=== PATIENT | female | born 1960 | race Caucasian/White ===

== ENCOUNTER 2023-03-23 08:47 | Emergency (ER) | payer OTHER, SELFPAY ==
[2023-03-23] VITALS (19 sets, daily range): BP systolic 120–153; BP diastolic 60–100; PULSE 62–76; RESP 0–29; TEMP 36.6; O2SAT 98–100; BMI 25.8
--- NOTE | 2023-03-23 09:10 | ED.BACK1 ---
HPI - Back Pain/Injury General Chief Complaint: Back Pain/Injury Stated Complaint: BACK PAIN, LEFT SIDED PAIN Time Seen by Provider: 03/23/23 09:10 Source: patient Mode of arrival: walk-in Limitations: no limitations History of Present Illness HPI Narrative: Patient presents to emergency department complaining of neck pain. Patient states she has a history of osteoarthritis and carpal tunnel. She states she has been having neck stiffness last week so she went to see her primary care doctor. Had an EMG ordered but he has not begun yet. Patient states she went to bed yesterday morning she will cough could not move her neck. She feels like when you have whiplash. Pain is on the left posterior and laterally and radiates down to her left medial scapular border. She denies any paresthesias, or weakness. She denies any fever, chills, or cough. She states it feels like her rib is off. She took ibuprofen has not had any relief. She denies any headache, visual disturbance, speech difficulties. She denies any urinary, bowel incontinence, retention. She denies any chest pain, or shortness of breath. She denies any nausea, vomiting, diarrhea, constipation, abdominal pain. She denies any flank pain, hematuria, dysuria. She denies any trauma to the arm, neck or back. Related Data Previous Rx's Medication Instructions Recorded cyclobenzaprine 10 mg tablet 10 mg PO TID PRN muscle spasm #14 03/23/23 tabs ibuprofen 600 mg tablet 600 mg PO TID PRN pain #20 tabs 03/23/23 Allergies Allergy/AdvReac Type Severity Reaction Status Date / Time pcn AdvReac Intermediate Uncoded 03/23/23 08:54 Review of Systems ROS Status of ROS 10 or more systems reviewed and unremarkable except as noted in history and below [facility] Social History Smoking status: Current every day smoker Exam Narrative Exam Narrative: Nurses notes and vital signs reviewed and patient is not hypoxic. General: Nontoxic, Well-appearing and in no apparent distress. Skin: Warm, dry, no pallor noted. No Rash Head: Normocephalic, atraumatic. Neck: Supple, Tenderness and spasm noted to the left sternocleidomastoid muscle. Range of motion is limited by pain. There is no erythema, no signs of trauma, infection. Eye: Pupils are equal, round and EOMI. No scleral icterus. Ears, Nose, Mouth, and Throat: TM clear, no posterior oropharynx erythema or nasal mucosal hypertrophy, uvula is mid-line Oral mucosa is moist Cardiovascular: Regular Rate and Rhythm without murmur, gallop or rub. Respiratory: No accessory muscle use or respiratory distress. Lungs are clear to auscultation, no wheezing, rales or rhonchi Chest Wall: no tenderness Back: Tenderness to palpation to the left lateral paraspinal muscles, suprascapular, and medial scapular border ribs 4 and 5. No signs of trauma, infection. No step-offs, crepitus. No midline thoracic or lumbar vertebral tenderness. No CVA tenderness Musculoskeletal: normal ROM, no calf or popliteal tenderness, no lower extremity edema/swelling GI: Abdomen is soft, non-distended. Normal bowel sounds. No masses appreciated. No tenderness to palpation. No rebound, guarding, or rigidity noted. Neurological: A&O x4. No cranial nerve dysfunction observed. No truncal ataxia. Moves all extremities. Sensation intact. Psychiatric: Cooperative and interactive. Normal mood and affect. Constitutional Vital Signs, click to edit/add: Last Vital Signs Temp 97.8 F 03/23/23 08:52 Pulse 70 03/23/23 12:01 Resp 18 03/23/23 12:01 BP 120/73 H 03/23/23 12:01 Pulse Ox 99 03/23/23 12:01 O2 Del Method Room Air 03/23/23 08:52 Course Vital Signs Vital signs: Vital Signs Temperature 97.8 F 03/23/23 08:52 Pulse Rate 76 03/23/23 08:52 Respiratory Rate 18 03/23/23 08:52 Blood Pressure 153/95 H 03/23/23 08:52 Pulse Oximetry 100 03/23/23 08:52 Oxygen Delivery Method Room Air 03/23/23 08:52 Temperature 97.8 F 03/23/23 08:52 Pulse Rate 70 03/23/23 12:01 Respiratory Rate 18 03/23/23 12:01 Blood Pressure 120/73 H 03/23/23 12:01 Pulse Oximetry 99 03/23/23 12:01 Oxygen Delivery Method Room Air 03/23/23 08:52 MDM - Back Pain/Injury MDM Narrative Medical decision making narrative: Patient was given Norflex, and 2 mg of morphine IV. Symptoms improved but she was still feeling like her neck was stiff. CT scan of the cervical spine was ordered, chest x-ray is unremarkable. Labs are unremarkable. D-dimer is negative. Troponin is negative. EKG does not show anything acute. Results discussed with patient. Patient is advised follow-up with primary care doctor regarding EMG and further testing. She is given a prescription for Flexeril, and ibuprofen. At this time the patient is without objective evidence of an acute process requiring hospitalization or inpatient management. The patient has remained hemodynamically stable. No additional indication for emergent studies at this time. I answered all questions. Discussed discharge instructions including standard anticipatory guidance and what should prompt a return to the emergency department, including if they get worse are not getting better or develops any new or concerning symptoms. I've given them specific time frame in which to follow-up, and who to follow-up with. The patient demonstrates understanding. Patient is nontoxic and stable for discharge with outpatient follow-up. This note was created with the assistance of a speech recognition program. Although the intention is to generate documents that actually reflects the content of the visit, no guarantees can be provided that every mistake has been identified and corrected by editing. Differential Diagnosis Differential diagnosis: Likely thoracic back pain and discitis Lab Data Attestation: I reviewed the patient's lab results. Labs: Lab Results 03/23/23 Range/Units 10:00 WBC 8.1 (4.0-11.0) 10^3/uL RBC 4.64 (4.20-5.40) 10^6/uL Hgb 14.3 (12.0-16.0) g/dL Hct 42.6 (36.0-48.0) % MCV 91.8 (81.0-99.0) fL MCH 30.8 (26.7-34.0) pg MCHC 33.6 (29.9-35.2) g/dL RDW 13.7 (11.0-15.0) % Plt Count 224 (150-450) 10^3/uL MPV 9.3 L (9.5-13.5) fL Neut % (Auto) 63.6 (43.0-75.0) % Lymph % (Auto) 23.0 (20.5-60.0) % [place] % (Auto) 11.2 (1.7-12.0) % Eos % (Auto) 1.2 (0.9-7.0) % Baso % (Auto) 0.5 (0.2-2.0) % Neut # (Auto) 5.2 (1.4-6.5) 10^3/uL Lymph # (Auto) 1.9 (1.2-3.8) 10^3/uL [place] # (Auto) 0.9 H (0.3-0.8) 10^3/uL Eos # (Auto) 0.1 (0.0-0.7) 10^3/uL Baso # (Auto) 0.0 (0.0-0.1) 10^3/uL Abs Immat Gran (auto) 0.04 H (0.00-0.03) 10^3/uL Imm/Tot Granulo (auto) 0.5 (0.0-0.5) % PT 10.1 (9.0-11.6) sec INR 0.95 D-Dimer 0.21 (<=0.59) mg/L FEU Sodium 139 (136-145) mmol/L Potassium 4.2 (3.5-5.1) mmol/L Chloride 104 (98-107) mmol/L Carbon Dioxide 27.3 (21.0-32.0) mmol/L Anion Gap 11.9 BUN 12.0 (7.0-18.0) mg/dL Creatinine 0.66 (0.55-1.02) mg/dL Est GFR ( Amer) >60 (>=60) Est GFR (Non-Af Amer) >60 (>=60) BUN/Creatinine Ratio 18.2 Glucose 88 (74-106) mg/dL Calcium 8.8 (8.5-10.1) mg/dL Magnesium 2.1 (1.8-2.4) mg/dL Total Bilirubin 0.4 (0.2-1.0) mg/dL AST 44 H (15-37) U/L ALT 73 H (14-59) U/L Alkaline Phosphatase 76 (46-116) U/L Troponin I High Sens 5.1 (4.0-51.3) pg/mL Total Protein 7.7 (6.4-8.2) g/dL Albumin 3.7 (3.4-5.0) g/dL Globulin 4.0 g/dL Albumin/Globulin Ratio 0.9 ECG Data Attestation: I personally reviewed and interpreted this ECG as follows: Interpretation: Sinus rhythm 63 beats per minutes. Normal axis. There are no acute ischemic changes. Discharge Plan Discharge Chief Complaint: Back Pain/Injury Clinical Impression: Muscle spasm, Thoracic back pain Patient Disposition: Home, Self-Care Time of Disposition Decision: 12:08 Condition: Good Mode of Transportation: Private Vehicle Prescriptions / Home Meds: New cyclobenzaprine 10 mg tablet 10 mg PO TID PRN (Reason: muscle spasm) Qty: 14 0RF ibuprofen 600 mg tablet 600 mg PO TID PRN (Reason: pain) Qty: 20 0RF Instructions: Muscle Spasm (ED), Neck Pain (ED) Stand Alone Forms: Portal Instructions Referrals: BHUPINDER NGUYEN [Primary Care Provider] - 1 week Discharge Date/Time: 03/23/23 12:36
--- NOTE | 2023-03-23 09:30 | ECG_ITS ---
The [facility] Test Date: 2023-03-23 Pat Name: STANLEY VALENTIN Department: Room: - Gender: Female [facility] [employer]: : 1960 Requested By: BHUPINDER NGUYEN Order Number: [id number] Reading MD: LAUREN OTERO Measurements Intervals Cut Off Rate: 63 P: 75 NH: 150 QRS: 65 QRSD: 90 T: 33 QT: 402 QTc: 410 Interpretive Statements 1100 Sinus rhythm 9110 normal ECG No previous ECG available for comparison Electronically Signed On 03-24-2023 6:58:00 EDT by LAUREN OTERO
--- NOTE | 2023-03-23 09:30 | XR_ITS ---
The [address] [address] Patient Name: STANLEY VALENTIN MRN: [id number] date: 1960 Sex: F Assigned Patient Location: ER Current Patient Location: ER Accession/Order Number: [id number] Exam Date: 03/23/2023 11:04 Report Date: 03/23/2023 11:26 At the request of: MIKE ANDREWS Procedure: XR chest 1V EXAM: XR chest 1V HISTORY: Pain; technologist notes state acute left-sided upper thoracic and neck pain since 03/21/2023. COMPARISON: None. TECHNIQUE: AP erect portable chest radiograph performed. FINDINGS: The trachea is midline. The heart size is upper limits normal and magnified. The mediastinal silhouette and hilar shadows are unremarkable. The lung volumes are normal. The lung vera are clear. There is no pneumothorax or osseous abnormality. XR/XR chest 1V IMPRESSION: Unremarkable AP erect portable chest radiograph. Electronically authenticated by: GERARD LOCKHART Date: 03/23/2023 11:26
--- NOTE | 2023-03-23 09:30 | CT_ITS ---
[address] [address] Patient Name: STANLEY VALENTIN MRN: [facility]:[id number] date: 1960 Sex: F Assigned Patient Location: ER Current Patient Location: .[facility] Accession/Order Number: [id number] Exam Date: 03/23/2023 10:27 Report Date: 03/23/2023 10:52 At the request of: MIKE ANDREWS Procedure: CT cervical spine wo con PROCEDURE: CT cervical spine wo con COMPARISON: None. HISTORY: pain TECHNIQUE: Axial, Coronal, and Sagittal images were created without and with non-ionic intravenous contrast material. Dose reduction techniques were achieved by using automated exposure control and/or adjustment of mA and/or kV according to patient size and/or use of iterative reconstruction technique. FINDINGS: CRANIOCERVICAL AREA: PARASPINAL AREA: Normal with no visible mass. BONES: Normal alignment with no acute fracture or spondylolisthesis. Mild degenerative spondylosis C5-C6 CERVICAL DISC LEVELS: C2-C3: No significant disc/facet abnormality, spinal stenosis, or foraminal stenosis C3-C4: No significant disc/facet abnormality, spinal stenosis, or foraminal stenosis C4-C5:Early degenerative disc disease is present without focal protrusion or neural impingement. C5-C6:Moderate degenerative disc disease is present without visible neural impingement. C6-C7:Early degenerative disc disease is present without focal protrusion or neural impingement. C7-T 1: No significant disc/facet abnormality, spinal stenosis, or foraminal stenosis CT/CT cervical spine wo con IMPRESSION: Moderate degenerative changes C5-C6. No central or foraminal stenosis Electronically authenticated by: EVARISTO PUCKETT Date: 03/23/2023 10:52
[2023-03-23] MEDS: ORPHENADRINE 60 MG/ 2 ML VIAL IV (09:45)
[2023-03-23 10:10] LABS: Basophils Percent Auto 0.5 % (0.2-2.0); Eosinophils Absolute Auto 0.1 10^3/uL (0.0-0.7); Eosinophils Percent Auto 1.2 % (0.9-7.0); Hematocrit 42.6 % (36.0-48.0); Hemoglobin 14.3 g/dL (12.0-16.0); Immature Granulocytes Abs Auto 0.04 10^3/uL (0.00-0.03); Immature Granulocytes Pct Auto 0.5 % (0.0-0.5); Lymphocytes Absolute Auto 1.9 10^3/uL (1.2-3.8); Mean Corpuscular HGB Conc 33.6 g/dL (29.9-35.2); Mean Corpuscular Hemoglobin 30.8 pg (26.7-34.0); Mean Corpuscular Volume 91.8 fL (81.0-99.0); Mean Platelet Volume 9.3 fL (9.5-13.5); Monocytes Absolute Auto 0.9 10^3/uL (0.3-0.8); Monocytes Percent Auto 11.2 % (1.7-12.0); Neutrophils Absolute Auto 5.2 10^3/uL (1.4-6.5); Neutrophils Percent Auto 63.6 % (43.0-75.0); Platelet Count 224 10^3/uL (150-450); Red Blood Count 4.64 10^6/uL (4.20-5.40); Red Cell Distribution Width 13.7 % (11.0-15.0); White Blood Count 8.1 10^3/uL (4.0-11.0)
[2023-03-23 10:28] LABS: Alanine Aminotransferase 73 U/L (14-59); Albumin Globulin Ratio 0.9; Albumin Level 3.7 g/dL (3.4-5.0); Alkaline Phosphatase 76 U/L (46-116); Anion Gap 11.9; Aspartate Amino Transferase 44 U/L (15-37); BUN Creatinine Ratio 18.2; Bilirubin Total 0.4 mg/dL (0.2-1.0); Calcium 8.8 mg/dL (8.5-10.1); Carbon Dioxide 27.3 mmol/L (21.0-32.0); Chloride 104 mmol/L (98-107); Estimated GFR (African America >60 (>=60); Estimated GFR (Non-African Ame >60 (>=60); Glucose 88 mg/dL (74-106); Magnesium 2.1 mg/dL (1.8-2.4); Potassium 4.2 mmol/L (3.5-5.1); Sodium 139 mmol/L (136-145); Total Protein 7.7 g/dL (6.4-8.2); Troponin I High Sensitivity 5.1 pg/mL (4.0-51.3)
[2023-03-23 10:31] LABS: D Dimer 0.21 mg/L FEU (<=0.59); INR 0.95; Prothrombin Time 10.1 sec (9.0-11.6)
== END 2023-03-23 12:36 | disposition home or self-care (01) ==
PROVIDERS: Emergency Provider Emergency Medicine; PCP Family Medicine
DX: M62.838 Other muscle spasm (principal); M54.6 Pain in thoracic spine; F17.210 Nicotine dependence, cigarettes, uncomplicated
CPT/HCPCS: 36415; 71045; 72125; 80053; 83735; 84484; 85025; 85378; 85610; 93005; 96374; 99285